=== PATIENT | male | born 1995 | race African-American/Black ===

== ENCOUNTER 2017-05-07 23:10 | Emergency (ER) | payer OTHER ==
[2017-05-07 23:34] VITALS: BP 132/78; PULSE 63; TEMP 97.8; BMI 25.7
--- NOTE | 2017-05-08 00:09 | PDOC ---
History of Present Illness - General Chief Complaint: Laceration Stated Complaint: CHIN LAC Time Seen by Provider: 05/08/17 00:09 - History of Present Illness Initial Comments: 05/08/17 05:39 21-year-old male with no significant past medical history presents with a chin laceration that he sustained during a soccer game at 5 PM today. Patient reports another players leg hit him on the bottom of his chin. Denies loss of consciousness. Was in his usual state of good health prior to the injury. Denies any other injuries. Reports pain only over the site of the laceration and denies pain elsewhere. Reports tdap updated last year. 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, denies tobacco, illicit drugs, +etoh once a week PSH: labrum surgery Past History - Past Medical History Allergies/Adverse Reactions: Allergies Allergy/AdvReac Type Severity Reaction Status Date / Time No Known Allergies Allergy Verified 07/09/16 09:09 Home Medications: Ambulatory Orders NK [No Known Home Medication] 07/09/16 Other medical history: DENIES - Immunization History Immunization Up to Date: Yes - Psycho/Social/Smoking Cessation Hx Anxiety: No Suicidal Ideation: No Smoking History: Never smoked Hx Alcohol Use: No Drug/Substance Use Hx: No Substance Use Type: None Review of Systems - Review of Systems Comments:: 05/08/17 05:56 GENERAL/CONSTITUTIONAL: No fever or chills. No weakness. HEAD, EYES, EARS, NOSE AND THROAT: No change in vision. No ear pain or discharge. No sore throat. GASTROINTESTINAL: No nausea, vomiting, diarrhea or constipation. GENITOURINARY: No dysuria, frequency, or change in urination. CARDIOVASCULAR: No chest pain or shortness of breath. RESPIRATORY: No cough, wheezing, or hemoptysis. MUSCULOSKELETAL: No joint or muscle swelling or pain. No neck or back pain. SKIN: No rash, +chin lac NEUROLOGIC: No headache, vertigo, loss of consciousness, or change in strength/ sensation. ENDOCRINE: No increased thirst. No abnormal weight change. HEMATOLOGIC/LYMPHATIC: No anemia, easy bleeding, or history of blood clots. ALLERGIC/IMMUNOLOGIC: No hives or skin allergy. *Physical Exam - Vital Signs Last Vital Signs Temp Pulse Resp BP Pulse Ox 97.8 F 63 14 132/78 99 05/07/17 23:10 05/07/17 23:10 05/07/17 23:10 05/07/17 23:10 05/07/17 23:10 - Physical Exam Comments: 05/08/17 05:57 GENERAL: Awake, alert, and fully oriented, in no acute distress HEAD: +2cm linear laceration to inferior chin, otherwise no signs of trauma EYES: PERRLA, EOMI, sclera anicteric, conjunctiva clear ENT: Auricles normal inspection, hearing grossly normal, nares patent, oropharynx clear without exudates. Moist mucosa NECK: Normal ROM, supple, no lymphadenopathy, JVD, or masses BACK: No midline spinal ttp LUNGS: Breath sounds equal, clear to auscultation bilaterally. No wheezes, and no crackles HEART: Regular rate and rhythm, normal S1 and S2, no murmurs, rubs or gallops ABDOMEN: Soft, nontender, normoactive bowel sounds. No guarding, no rebound. No masses EXTREMITIES: Normal range of motion, no edema. No clubbing or cyanosis. No cords, erythema, or tenderness NEUROLOGICAL: Normal speech, cranial nerves intact, negative pronator drift, 5/ 5 strength in all 4 extremities, normal sensation to light touch in all 4 extremities, normal cerebellar exam, normal gait, normal reflexes and tone Procedures - Laceration/Wound Repair Face Wound Length: to 2.5 cm Wound Explored: clean Wound's Depth, Shape: superficial, linear Irrigated w/ Saline: Yes Anesthesia: 1% Lidocaine Wound Repaired With: Sutures Suture Size/Type: 5:0, nylon Number of Sutures: 5 Layer Closure: No Medical Decision Making - Medical Decision Making 05/08/17 06:01 21-year-old male presents with a laceration. Laceration repaired with 5, 5-0 nylon sutures with no complications. Patient to return in 3-5 days for suture removal. *DC/Admit/Observation/Transfer Diagnosis at time of Disposition: Laceration - Discharge Dispostion Disposition: HOME Condition at time of disposition: Stable Admit: No - Referrals Referrals: STAFF,NOT ON [Primary Care Provider] - - Patient Instructions Printed Discharge Instructions: DI for Laceration Repair Additional Instructions: Please return here or to an urgent care center in 3-5 days for stitch removal. Return to the emergency department for any new, concerning, or worsening symptoms. - Attestations Physician Attestion: 05/08/17 00:49 I, Dr. Heraclio Lema MD, attest that this document has been prepared under my direction and personally reviewed by me in its entirety. I further attest, that it accurately reflects all work, treatment, procedures and medical decision -making performed by me.
== END 2017-05-08 00:53 | disposition home or self-care (01) ==
LOC: FER 23:10
PROC: 0HQ1XZZ Repair Face Skin, External Approach (ICD-10-PCS; principal; 2017-05-07)
DX: S01.81XA Laceration without foreign body of other part of head, initial encounter (principal); W50.0XXA Accidental hit or strike by another person, initial encounter; Y93.66 Activity, soccer; Y92.9 Unspecified place or not applicable
CPT/HCPCS: 99281-25

== ENCOUNTER 2017-05-26 16:20 | Emergency (ER) | payer OTHER ==
--- NOTE | 2017-05-26 16:23 | PDOC ---
History of Present Illness - General History Source: Patient Exam Limitations: No Limitations - History of Present Illness Initial Comments: 05/26/17 16:35 The patient is a 21 year old male, with no significant past medical history who presents to the emergency department for suture removal. Patient reports he is here to have his sutures removed from his chin. He reports getting injured from soccer game 1 month ago. Patient reports 6 stitches being put in on initial ED visit. He denies chest pain, shortness of breath, headache and dizziness. He denies fever, chills, nausea, vomit, diarrhea and constipation. He denies dysuria, frequency, urgency and hematuria. 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 Rajiv Alves. <Chucky Damico - Last Filed: 05/26/17 16:34> <Ian Erwin - Last Filed: 05/26/17 16:42> - General Chief Complaint: Suture/Staple Removal(Here) Stated Complaint: SUTURE REMOVAL FROM CHIN Time Seen by Provider: 05/26/17 16:23 Past History <Chucky Damico - Last Filed: 05/26/17 16:34> - Immunization History Immunization Up to Date: Yes - Suicide/Smoking/Psychosocial Hx Smoking History: Never smoked Hx Alcohol Use: No Drug/Substance Use Hx: No Substance Use Type: None <Ian Erwin - Last Filed: 05/26/17 16:42> - Past Medical History Allergies/Adverse Reactions: Allergies Allergy/AdvReac Type Severity Reaction Status Date / Time No Known Allergies Allergy Verified 07/09/16 09:09 Home Medications: Ambulatory Orders NK [No Known Home Medication] 07/09/16 Review of Systems - Review of Systems Able to Perform ROS?: Yes Comments:: 05/26/17 16:35 CONSTITUTIONAL: Absent: Fever, Chills, Diaphoresis, Generalized Weakness, Malaise, Loss of Appetite HEENT: Absent: Rhinorrhea, Nasal Congestion, Throat Pain, Throat Swelling, Difficulty Swallowing, Mouth Swelling, Ear Pain, Eye Pain, Visual Changes CARDIOVASCULAR: Absent: Chest Pain, Syncope, Palpitations, Irregular Heart Rate, Lightheadedness , Peripheral Edema MUSCULOSKELETAL: Absent: Myalgia, Arthralgia, Joint Swelling, Back pain, Neck Pain SKIN: Absent: Rash, Itching, Pallor All Other Systems: Reviewed and Negative <Chucky Damico - Last Filed: 05/26/17 16:34> *Physical Exam - Vital Signs Last Vital Signs Temp Pulse Resp BP Pulse Ox 14 130/70 100 05/26/17 16:22 05/26/17 16:22 05/26/17 16:22 - Physical Exam Comments: 05/26/17 16:35 GENERAL: The patient is awake, alert, and fully oriented, in no acute distress. HEAD: Normal with no signs of trauma. EYES: Pupils equal, round and reactive to light, extraocular movements intact, sclera anicteric, conjunctiva clear. EXTREMITIES: Normal range of motion, no edema. Sensation intact. Circulation intact. NEUROLOGICAL: Normal speech, normal gait. PSYCH: Normal mood, normal affect. SKIN: +Chin wound healing well. +Sutures removed. No infection. No pain. Warm, Dry, normal turgor, no rashes or lesions noted <Chucky Damico - Last Filed: 05/26/17 16:34> Medical Decision Making - Medical Decision Making 05/26/17 16:40 21-year-old man is a little over 2 weeks status post submental laceration playing soccer. He was sutured here in the ED. He missed his time to come back for suture removal, but presents today for suture removal. There have been no problems with the wound. On examination, the wound is healing well. There is no sign of infection. Wound cleansed with Betadine. Sutures all removed. Patient advised regarding treatment and follow-up. Clear to resume normal activities. <Ian Erwin - Last Filed: 05/26/17 16:42> *DC/Admit/Observation/Transfer - Attestations Scribe Attestion: 05/26/17 16:35 Documentation prepared by Chucky Damico, acting as medical nurse for Ian Erwin MD/DO. <Chucky Damico - Last Filed: 05/26/17 16:34> - Discharge Dispostion Admit: No <Ian Erwin - Last Filed: 05/26/17 16:42> Diagnosis at time of Disposition: Chin laceration Qualifiers: Encounter type: subsequent encounter Qualified Code(s): S01.81XD - Laceration without foreign body of other part of head, subsequent encounter; S01.81XD - Laceration without foreign body of other part of head, subsequent encounter - Discharge Dispostion Disposition: HOME Condition at time of disposition: Stable - Referrals Referrals: Rajiv Alves [Primary Care Provider] - - Patient Instructions Printed Discharge Instructions: DI for Suture Removal Additional Instructions: Today you were seen for follow-up of your chin laceration. The wound is healing well and there is no infection. All of the sutures were removed. You' re cleared to resume normal activities. Avoid injuring that area as much as possible.
[2017-05-26 16:31] VITALS: BP 130/70; BMI 25.7
== END 2017-05-26 16:44 | disposition home or self-care (01) ==
LOC: FER 16:20
DX: Z48.02 Encounter for removal of sutures (principal)
CPT/HCPCS: 99281-25